=== PATIENT | female | born 1960 | race Caucasian/White ===

== ENCOUNTER 2019-05-12 16:40 | Emergency (ER) | payer BC, OTHER ==
[~2019-05-12] VITALS: Ht 170.2 cm; Wt 80.7 kg
--- NOTE | ~2019-05-12 | EMS ---
[facility] [address] [place] [address] EMS Patient Care Report Name: SHELBIE EGAN Room #: REG MICHELLE Russell#: [id number] Admission: 05/12/19 Attend Phys: Discharge: Date of : 60 Report #: [id number] THIS REPORT FOR: //name// Report Transmitted: 05/12/2019 16:55 EMS Care Summary [facility] Incident [id number] @ 05/12/2019 16:08 Incident Location [address] [place] [address] Patient SHELBIE ALEMAN Female, 58 Years 1960 Patient Address [address] [place] [address] Patient History None Reported, Patient Allergies Bactrim, Patient Medications Doxycycline, Chief Complaint I'm sick Disposition Transported No Lights/[place] Reason Allergic Reaction/Stings Transported To [facility] Narrative Arrive to find the pt sitting upright on a chair in her living room with a convenience bag held to her face being assessed by [facility]. Pt reports she is thinking that she reaction to a medication. Pt says that she took Doxycycline last night after being prescribed it yesterday at an urgent care clinic for a [facility] [address] [place] [address] EMS Patient Care Report Name: SHELBIE EGAN Room #: REG ER Yvonne#: [id number] Admission: 05/12/19 Attend Phys: Discharge: Date of : 60 Report #: [id number] sinus infection. Pt says that she also took it this morning with her breakfast and felt fine until about 1pm. Pt says she then became nauseous and vomited and also had diarrhea. Pt says she also has a headache and says she just feels sick. Pt denies any CP, SOB, rash or hives, itching or any other pains or problems. After discussing options she decides that she would like to be transported to an ER. Pt says that she can walk to the ambulance after EMS offers to bring the cot to her. Pt walks unassisted with no complications to the ambulance and is secured to cot. Pt is offered zofran either orally or by IV and she says she wants to have it orally. Biocom to [facility] with no orders and transport without incident. Pt converses and answers questions during tx. Pt taken to ER room 12 and report to RN at bedside and care transferred. Pt reports that the zofran is finally starting to dissolve and says her mouth was dry so that is why it took so long. Initial Vitals @16:24P: 92,SpO2: 100, @16:29P: 86,R: 18,BP: 157/121,Pain: 4/10,SpO2: 99,OR Suspected: false @16:17P: 88,R: 18,BP: 158/113,Pain: 4/10,GCS: 15,SpO2: 99,Revised Trauma: 12, Assessments @16:20MENTAL:Person Oriented,Time Oriented,Place Oriented,Event Oriented,SKIN:HEENT:Head/Face: No Abnormalities,LUNG SOUNDS:ABDOMEN:PELVIS//GI:EXTREMITIES:Left Arm: No Abnormalities,Right Arm: No Abnormalities,Left Leg: No Abnormalities,Right Leg: No Abnormalities,PULSE:NEURO:No Abnormalities, Impression Nausea Procedures @16:20Ondansetron - 4 Milligrams (mg) - OralResponse: Improved Timeline 16:07,Call Received 16:07,Psap Call 16:08,Dispatched 16:08,En Route 16:16,On Scene 16:16,At Patient 16:17,BP: 158/113 M,PULSE: 88,RR: 18 R,SPO2: 99 Ox,ETCO2: ,BG: ,PAIN: 4,GCS: 15, 16:20,Ondansetron - 4 Milligrams (mg) - Oral,Response: Improved 16:24,BP: / M,PULSE: 92,RR: R,SPO2: 100 Ox,ETCO2: ,BG: ,PAIN: ,GCS: , [address] [address] EMS Patient Care Report Name: ERMA BRADYSHELBIE Room #: REG MMarryR.#: [id number] Admission: 05/12/19 Attend Phys: Discharge: Date of : 60 Report #: [id number] 16:24,Depart Scene 16:29,BP: 157/121 M,PULSE: 86,RR: 18 R,SPO2: 99 Ox,ETCO2: ,BG: ,PAIN: 4,GCS: , 16:34,At Destination 17:03,Call Closed Disclaimer v1.1 Copyright 2019 Information Assurance This EMS Care Summary contains data elements from the applicable legal record (which may be displayed differently). It is designed to provide pertinent information for the following purposes: continuity of care, clinical quality, and state data reporting. The complete legal record is available to ED staff and administrators of the receiving hospital in [email or web address]'s Patient Tracker. All data is provided "as is."
[2019-05-12 17:23] LABS: BASOPHILS 0.5 % (0.0-2.0); EOSINOPHILS 0.3 % (0.0-3.0); HEMOGLOBIN 14.4 gm/dL (12.0-15.0); LYMPHOCYTES 14.6 % (24.0-44.0); MCH 31.9 pg (26.0-34.0); MCHC 33.5 g/dL (28.0-37.0); MCV 95.4 fL (80.0-100.0); PLATELET COUNT 274 thou/uL (150-400); POLYS 81.6 % (36.0-66.0); RBC 4.51 mil/uL (4.20-5.00); RDW 13.5 % (10.5-14.5); WBC 9.8 thou/uL (4.0-11.0)
[2019-05-12 17:31] LABS: ANION GAP 11 mmol/L (7-16); BUN 16 mg/dL (7-18); CALCIUM 9.6 mg/dL (8.5-10.1); CHLORIDE 103 mmol/L (98-107); CO2 27 mmol/L (21-32); GLUCOSE 156 mg/dL (74-106); POTASSIUM 3.6 mmol/L (3.5-5.1); SODIUM 141 mmol/L (136-145)
[2019-05-12 17:40] LABS: LIPASE 129 U/L (73-393); TROPONIN-I <0.06 ng/mL (<0.06)
[2019-05-12] MEDS ORDERED: ZOFRAN ODT4 MG PO (18:12)
[2019-05-12 18:31] VITALS: BP 127/97
--- NOTE | 2019-05-15 13:12 | EKG ---
[place] [address] [address] [facility] [place] [address] ELECTROCARDIOGRAM REPORT Name: ERMA SHELBIE BRADY Room #: DEP [facility]#: [id number] Admission: 05/12/19 Attend Phys: Discharge: 05/12/19 Date of : 60 Report #: [id number] THIS REPORT FOR: //name// [facility] ED Test Date: 2019-05-12 Test Time: 17:03:48 Pat Name: SHELBIE BRADYDepartment: Room: Gender: F Hr Administrator: : 1960 Requested By: Rodger Kenney Order Number: [id number] MD: Lasha Tran Measurements Intervals Abie Rate: 79 P: 27 MS: 174 QRS: -16 QRSD: 91 T: 10 QT: 395 QTc: 453 Interpretive Statements Sinus rhythm No significant abnormality No previous ECG available for comparison Electronically Signed On 05-15-2019 13:11:46 CDT by Lasha Tran [email or web address] <ELECTRONICALLY SIGNED> By: Lasha Tran MD, FACC 05/15/19 1311 1703 1703 Lasha Tran MD, FACC /EPI
== END 2019-05-12 18:32 | disposition home or self-care (01) ==
LOC: ER 16:40
PROVIDERS: Emergency Medicine
DX: R19.7 Diarrhea, unspecified (principal); R11.2 Nausea with vomiting, unspecified; T36.4X5A Adverse effect of tetracyclines, initial encounter; Z88.1 Allergy status to other antibiotic agents; Z88.2 Allergy status to sulfonamides; Y92.89 Other specified places as the place of occurrence of the external cause